=== PATIENT | male | born 1970 | race African-American/Black ===

== ENCOUNTER 2019-05-25 09:30 | Day surgery (SDC) | payer OTHER ==
[~2019-05-25 09:30] MED LIST: SODIUM CHLORIDE 0.9% 1000 ML 1,000 ML IV SCH
--- NOTE | 2019-05-25 10:13 | Anesthesia Day of Surgery ---
Anesthesia Day of Surgery - Day of Surgery Patient Examined: Yes Patient H&P Reviewed: Yes Patient is NPO: Yes
--- NOTE | 2019-05-25 10:16 | Anesthesia Consultation ---
Anesthesia Consult and Med Hx Date of service: 05/25/19 - Airway Anesthetic Teeth Evaluation: Caps ROM Head & Neck: Adequate Mental/Hyoid Distance: Adequate Mallampati Class: Class II Intubation Access Assessment: Probably Good - Pre-Operative Health Status ASA Pre-Surgery Classification: ASA2 Proposed Anesthetic Plan: MAC - Pulmonary Hx Smoking: No (H/O Smoking, quit 1997) - Cardiovascular System Hx Hypertension: Yes - Central Nervous System Hx Neuromuscular Disorder: Yes (Peripheral neuropathy. Chronic Lt leg Pain) - Gastrointestinal Hx Gastroesophageal Reflux Disease: Yes
[2019-05-25] MEDS ORDERED: PROPOFOL 200 MG/20 ML VIAL IV ONE (11:25)
--- NOTE | 2019-05-25 11:45 | Procedure Note ---
Date of procedure: 05/25/19 Pre-op diagnosis: Abdominal Pain/ R/O Celiac Disease Post-op diagnosis: other (R/O Eosinophilic Esophilic Esophagitis/ R/O Celiacf Disease/Gastritis/Mild Distal,Esophagitis) Procedure: EGD with Biopsy Anesthesia: MAC Surgeon: CHELSEY DONALD Estimated blood loss: minimal Pathology: list Specimen disposition: to lab Condition: stable Disposition: same day (Avoid aspirin and NSAID for 4days; otherwise resume home medication and follow up in 1 to 2 weeks ([phone]).)
[2019-05-25 12:15] VITALS: BP 98/64
[2019-05-25] MEDS ORDERED: WATER FOR IRRIG STERILE 250 ML BOTTLE IR ONE (12:18)
--- NOTE | 2019-05-25 15:13 | Post Anesthesia Evaluation ---
- Post Anesthesia Evaluation Patient Participated: Yes Airway Patent: Yes Stable Respiratory Function: Yes Nausea/Vomiting: No Temp > 96.8F: Yes Pain Manageable: Yes Adequeate Hydration: Yes Anesthesia Complications: No Block Receding Appropriately: Not Applicable Patient on Ventilator: No
--- NOTE | 2019-05-30 13:28 | History and Physical Report ---
HISTORY OF PRESENT ILLNESS: The patient underwent an EGD on . This is a 49-year-old gentleman, slightly underweight, who has a family history of cancer. The patient's father has a history of non-Hodgkin's lymphoma, now who is undergoing chemotherapy. The patient has an underlying history of hypertension, recent colonoscopy as part of colon polyp screening showed presence of multiple colon polyps involving the transverse colon as well as the proximal descending colon. These results for further pathologic evaluation were sent to the [facility]. They came back as being benign. It was suggested that the patient may have associated celiac disease or H. pylori gastritis with some other immune deficiency situation and he was advised to have an EGD done, which is to have done on 05/25/2019 at [facility]. Biopsy was taken from the small intestine to assess for possible celiac disease and gastric biopsies to assess for H. pylori gastritis. SOCIAL HISTORY: He denies history of smoking or alcohol use. No cardiac issues. No flu shots. ALLERGIES: Include MOTRIN, NAPROXEN. MEDICATIONS: Gabapentin, vitamin B12 and lisinopril. PHYSICAL EXAMINATION: GENERAL: He is afebrile. VITAL SIGNS: Blood pressure was 132/76, pulse is 70, height is 5 feet 9 inches, weight is 147 pounds. HEENT: Shows no JVD. LUNGS: Clear to auscultation with some reduced breath sounds. CARDIOVASCULAR: Normal. ABDOMEN: Soft. Bowel sounds present. NEUROLOGIC: He is alert and oriented. ASSESSMENT: Multiple benign colon polyps in the transverse and the proximal descending colon, possible celiac disease, abdominal pain, hypertension, family history of lymphoma. PLAN: To do an EGD at [facility] on 05/25/2019 and repeat colonoscopy later this year. JOB# [id number] MELISSA/NTS
== END 2019-05-25 09:31 | disposition home or self-care (01) ==
LOC: GIO 09:30
DX: R10.9 Unspecified abdominal pain (principal); K29.50 Unspecified chronic gastritis without bleeding; K21.0 Gastro-esophageal reflux disease with esophagitis; I10 Essential (primary) hypertension; G62.9 Polyneuropathy, unspecified; K31.89 Other diseases of stomach and duodenum; Z88.8 Allergy status to other drugs, medicaments and biological substances; Z79.899 Other long term (current) drug therapy; Z98.890 Other specified postprocedural states; Z80.8 Family history of malignant neoplasm of other organs or systems
CPT/HCPCS: 43239; 88305; 88342; J2704; J7030